=== PATIENT | female | born 1980 | race Native Hawaiian/Other Pacific Islander ===

== ENCOUNTER 2021-01-04 12:30 | Emergency (ER) | payer OTHER | END 2021-01-04 14:08 | disposition home or self-care (01) | LOC: ED 12:30 | DX: S46.811A Strain of other muscles, fascia and tendons at shoulder and upper arm level, right arm, initial encounter (principal); M75.21 Bicipital tendinitis, right shoulder; M79.18 Myalgia, other site; X50.9XXA Other and unspecified overexertion or strenuous movements or postures, initial encounter; Y92.89 Other specified places as the place of occurrence of the external cause | CPT/HCPCS: 99283 ==

== ENCOUNTER 2021-05-25 13:13 | Emergency (ER) | payer BC ==
[~2021-05-25] VITALS: Ht 170.2 cm; Wt 72.1 kg
[2021-05-25 14:01] LABS: PLATELET COUNT 285 K/uL (152-353)
[2021-05-25 14:09] LABS: POTASSIUM 3.2 mmol/L (3.6-5.2); SODIUM 139 mmol/L (136-145)
[2021-05-25 17:00] VITALS: BP 126/72; TEMP 98.7
== END 2021-05-25 17:00 | disposition home or self-care (01) ==
LOC: ED 13:13
PROVIDERS: Emergency Medicine
DX: R10.13 Epigastric pain (principal)
CPT/HCPCS: 36415; 80053; 81000; 81025; 83690; 84484; 85027; 93005; 96360; 96375; 99284; J1885; J2405; Q9963

== ENCOUNTER 2022-08-11 21:28 | Emergency (ER) | payer BC ==
[~2022-08-11] VITALS: Ht 175.3 cm; Wt 72.1 kg
[2022-08-11 21:28] VITALS: BP 135/93; TEMP 98.4
== END 2022-08-11 23:01 | disposition home or self-care (01) ==
LOC: ED 21:28
DX: J02.9 Acute pharyngitis, unspecified (principal); F17.210 Nicotine dependence, cigarettes, uncomplicated
CPT/HCPCS: 87651; 99282; J1885